=== PATIENT | female | born 2000 | race Two or more races ===

== ENCOUNTER 2024-01-27 16:00 | Emergency (ER) | payer OTHER ==
[~2024-01-27] VITALS: Ht 154.9 cm; Wt 43.1 kg
[2024-01-27] MEDS ORDERED: SUCRALFATE 1 G TABLET PO STA (17:47)
[2024-01-27 18:30] LABS: HEMATOCRIT 37.9 % (36.0-45.00); HEMOGLOBIN 13.1 g/dL (12.0-15.00); MEAN CELL VOLUME 90.1 fL (80.00-100.00); MEAN CORPUSCULAR HEMOGLOBIN 31.2 pg (27.00-32.0); MEAN CORPUSCULAR HGB CONC 34.6 g/dl (32.0-36.0); PLATELET COUNT 203 K/uL (150-450); RED CELL DISTRIBUTION WIDTH 13.2 % (11.5-14.5)
[2024-01-27 18:41] LABS: ALBUMIN 3.8 gm/dL (3.4-5.0); BILIRUBIN TOTAL 0.5 mg/dL (0.3-1.2); CALCIUM 9.5 mg/dL (8.5-10.1); CREATININE SERUM 0.9 mg/dL (0.55-1.02); GFR 77.59; GLOBULINA 3.7 G/DL (2.4-3.5); POTASSIUM 4.13 mEq/L (3.5-5.1); TOTAL PROTEIN 7.5 gm/dL (6.4-8.2)
== END 2024-01-27 18:57 | disposition home or self-care (01) ==
LOC: ER 16:01
PROVIDERS: General Practice
DX: R53.81 Other malaise (principal); K29.70 Gastritis, unspecified, without bleeding

== ENCOUNTER 2024-05-20 21:47 | Emergency (ER) | payer OTHER ==
[~2024-05-20] VITALS: Ht 154.9 cm; Wt 41.7 kg
[2024-05-21] MEDS ORDERED: KETOROLAC TROMETHAMINE 60 MG VIAL IM STA (00:39)
[2024-05-21] MEDS ORDERED: CEFTRIAXONE SODIUM 1,000 MG VIAL IV SCH (00:45)
[2024-05-21] MEDS ORDERED: KETOROLAC TROMETHAMINE 60 MG VIAL IM ONE (00:50)
[2024-05-21] MEDS ORDERED: CEFTRIAXONE SODIUM 1,000 MG VIAL ONE (00:51)
[2024-05-21 01:13] LABS: URINE APPEARANCE Clear; URINE BILIRRUBIN Negative (NEGATIVE); URINE BLOOD Large; URINE COLOR Yellow; URINE GLUCOSE Negative (NEGATIVE); URINE LEUKOCYTE Large; URINE NITRATE Negative; URINE PROTEIN Trace (NEGATIVE)
[2024-05-21 01:14] LABS: HEMATOCRIT 41.6 % (36.0-45.00); HEMOGLOBIN 14.2 g/dL (12.0-15.00); MEAN CELL VOLUME 89.4 fL (80.00-100.00); MEAN CORPUSCULAR HEMOGLOBIN 30.5 pg (27.00-32.0); MEAN CORPUSCULAR HGB CONC 34.2 g/dl (32.0-36.0); PLATELET COUNT 224 K/uL (150-450); RED BLOOD COUNT 4.66 M/uL (4.00-6.00); RED CELL DISTRIBUTION WIDTH 13.7 % (11.5-14.5)
[2024-05-21 01:16] LABS: URINE EPITHELIAL CELLS 4.6 uL (0.0-38.8); URINE RBC 316.5 uL (0.0-20.8); URINE WBC 436.1 uL (0.0-23.2)
[2024-05-21 02:05] LABS: URINE BACTERIA > 9821.5 uL (0.0-1933)
[2024-05-21] MEDS ORDERED: PYRIDIUM DS200 MG PO (03:03)
[2024-05-21] MEDS ORDERED: CEPHALEXIN750 MG PO (03:03)
[2024-05-21] MEDS ORDERED: KETO10TA2 PO (03:03)
== END 2024-05-21 03:17 ==
LOC: ER 21:47
PROVIDERS: General Practice
DX: N39.0 Urinary tract infection, site not specified (principal)

== ENCOUNTER 2025-04-16 15:07 | Emergency (ER) | payer OTHER ==
[~2025-04-16] VITALS: Ht 154.9 cm; Wt 42.2 kg
[~2025-04-16 15:07] MED LIST: CEPHALEXIN750 MG PO; KETO10TA2 PO; PYRIDIUM DS200 MG PO
[2025-04-16] MEDS ORDERED: ONDANSETRON HCL 2 MG/ML VIAL IV STA (15:51)
[2025-04-16] MEDS ORDERED: FAMOTIDINE/PF 20 MG in 0.9 % SODIUM CHLORIDE 100 ML IV STA (15:51)
[2025-04-16] MEDS ORDERED: FAMOTIDINE/PF 20 MG/2 ML VIAL ONE (16:03)
[2025-04-16] MEDS ORDERED: ONDANSETRON HCL 2 MG/ML VIAL ONE (16:03)
[2025-04-16] MEDS ORDERED: PEPCID AC20 MG PO (17:15)
[2025-04-16] MEDS ORDERED: PROTONIX40 MG PO (17:15)
== END 2025-04-16 17:51 | disposition home or self-care (01) ==
LOC: ER 15:07
DX: K21.9 Gastro-esophageal reflux disease without esophagitis (principal); K29.70 Gastritis, unspecified, without bleeding

== ENCOUNTER 2025-10-08 10:12 | Emergency (ER) | payer OTHER ==
[~2025-10-08] VITALS: Ht 154.9 cm; Wt 42.2 kg
[~2025-10-08 10:12] MED LIST changes: +PEPCID AC20 MG PO; +PROTONIX40 MG PO
[2025-10-08 10:59] VITALS: BP 102/71; O2SAT 100
[2025-10-08] MEDS ORDERED: 0.9 % SODIUM CHLORIDE 1,000 ML IV STA (11:24)
[2025-10-08] MEDS ORDERED: ONDANSETRON HCL 2 MG/ML VIAL IV ONE (11:30)
[2025-10-08] MEDS ORDERED: FAMOTIDINE/PF 20 MG/2 ML VIAL IV ONE (11:30)
[2025-10-08] MEDS ORDERED: ACETAMINOPHEN 500 MG GEL..CAP PO ONE ×2 (11:30→12:48)
[2025-10-08] MEDS ORDERED: ONDANSETRON HCL 2 MG/ML VIAL ONE ×2 (12:48→12:49)
[2025-10-08] MEDS ORDERED: FAMOTIDINE/PF 20 MG/2 ML VIAL ONE (12:49)
[2025-10-08 13:36] LABS: BASO % 0.2 % (0.1-1.2); EOS # 0.00 (0.04-0.54); EOS % 0.0 % (0.7-7.0); LYMPH # 0.49 (1.18-3.74); LYMPH % 8.4 % (19.3-53.1); MEAN PLATELET VOLUME 10.70 fl (9.4-12.4); MONO # 0.63 (0.24-0.82); MONO % 10.8 % (4.7-12.5); NEUT # 4.63 (1.56-6.13); NEUT % 79.6 % (34.0-71.1); RED CELL DISTRIBUTION WIDTH 12.5 % (11.6-14.4)
[2025-10-08 13:54] LABS: ALT/SGPT 88.0 U/L (12-78); AST/SGOT 70.0 U/L (15-37); BILIRUBIN TOTAL 0.41 mg/dL (0.3-1.2); BILIRUBIN,CONJUGATED 0.17 mg/dL (0.0-0.2); BUN CREA RATIO 11.0 (7.0-25.0); CREATININE SERUM 0.74 mg/dL (0.55-1.02); GFR 96.42; GLUCOSE FASTING 99.0 mg/dL (65-100); OSMOLALITY SERUM 276.0 MOSM/KG (275-295)
[2025-10-08 14:09] LABS: COVID-19 AG NEGATIVE (NEGATIVE)
[2025-10-08 14:19] LABS: URINE APPEARANCE Clear; URINE BILIRRUBIN Negative (NEGATIVE); URINE BLOOD Trace; URINE COLOR Yellow; URINE GLUCOSE Negative (NEGATIVE); URINE KETONE Negative (NEGATIVE); URINE LEUKOCYTE Small; URINE NITRATE Negative; URINE PROTEIN Negative (NEGATIVE); URINE UROBILINOGEN 1.0 E.U./dl
[2025-10-08 14:22] LABS: URINE EPITHELIAL CELLS 27.1 uL (0.0-38.8); URINE RBC 25.3 uL (0.0-20.8); URINE WBC 106.5 uL (0.0-23.2)
[2025-10-08 14:34] LABS: URINE CAST 0.84 uL (0.0-1.40)
[2025-10-08] MEDS ORDERED: OSEL75CA PO (15:05)
[2025-10-08] MEDS ORDERED: PEPCID AC20 MG PO (15:06)
== END 2025-10-08 15:44 | disposition home or self-care (01) ==
LOC: ER 10:13
PROVIDERS: General Practice
DX: J10.1 Influenza due to other identified influenza virus with other respiratory manifestations (principal); K29.00 Acute gastritis without bleeding; Z20.822 Contact with and (suspected) exposure to COVID-19